=== PATIENT | female | born 1965 | race Caucasian/White ===

== ENCOUNTER 2017-11-07 11:15 | Emergency (ER) | payer MEDICAID, OTHER ==
[2017-11-07 12:01] LABS: ADD MAN DIFF? NO
[2017-11-07 12:11] LABS: BASOPHIL # 0.1 10^3/ul (0.0-0.1); BASOPHILS % 0.8 % (0.0-2.0); EOSINOPHILS # 0.2 10^3/ul (0.0-0.5); EOSINOPHILS % 2.2 % (0.0-7.0); HEMATOCRIT 39.2 % (37.0-47.0); HEMOGLOBIN 12.4 g/dl (12.0-16.0); LYMPHOCYTES # 2.7 10^3/ul (0.8-2.9); MEAN CORPUSCULAR HEMOGLOBIN 25.5 pg (29.0-33.0); MEAN CORPUSCULAR HGB CONC 31.6 g/dl (32.0-37.0); MEAN CORPUSCULAR VOLUME 80.5 fl (82.0-101.0); MEAN PLATELET VOLUME 11.5 fl (7.4-10.4); MONOCYTE # 0.6 10^3/ul (0.3-0.9); MONOCYTES % 6.4 % (0.0-11.0); NEUTROPHIL # 5.2 10^3/ul (1.6-7.5); NEUTROPHILS % 58.9 % (39.0-77.0); PLATELET COUNT 266 10^3/UL (140-415); RED BLOOD COUNT 4.87 10^6/ul (4.20-5.40); RED CELL DISTRIBUTION WIDTH 14.8 % (11.5-14.5)
[2017-11-07 12:11] LABS: WHITE BLOOD COUNT 8.8 10^3/ul (4.8-10.8)
[2017-11-07 12:22] LABS: ANION GAP 18 (8-16); BLOOD UREA NITROGEN 10 mg/dl (7-20); CALCIUM 8.8 mg/dl (8.4-10.2); CARBON DIOXIDE 25 mmol/L (21-31); CHLORIDE 109 mmol/L (97-110); CREATININE 0.49 mg/dl (0.44-1.00); GLUCOSE 113 mg/dl (70-220); POTASSIUM 3.9 mmol/L (3.5-5.1); SODIUM 148 mmol/L (135-144)
[2017-11-07 12:30] LABS: PARTIAL THROMBOPLASTIN TIME 28.7 Sec (25.0-35.0); PROTIME 13.3 Sec (11.9-14.9)
[2017-11-07 12:34] LABS: TROPONIN-I < 0.012 ng/ml (0.000-0.120)
[2017-11-07 12:48] LABS: B-TYPE NATRIURETIC PEPTIDE 57 PG/ML (0-125)
[2017-11-07] MEDS: IOHEXOL 100 ML (13:04)
[2017-11-07] MEDS: SOD CHLORIDE 0.9% 100 ML (13:04)
[2017-11-07] MEDS: KETOROLAC 30 MG INJ IV (15:22)
== END 2017-11-07 16:45 | disposition home or self-care (01) ==
LOC: E/R 11:15
DX: R09.1 Pleurisy (principal); R60.0 Localized edema; I10 Essential (primary) hypertension; Z79.82 Long term (current) use of aspirin
CPT/HCPCS: 36415; 71045; 71275; 80048; 83880; 84484; 85025; 85610; 85730; 93970; 96374; 99285-25

== ENCOUNTER 2017-12-04 14:06 | Inpatient (IN) | payer MEDICAID ==
[2017-12-04 17:32] LABS: ADD MAN DIFF? NO
[2017-12-04 17:35] LABS: BASOPHILS % 0.3 % (0.0-2.0); EOSINOPHILS % 0.1 % (0.0-7.0); HEMOGLOBIN 14.5 g/dl (12.0-16.0); LYMPHOCYTES # 1.1 10^3/ul (0.8-2.9); LYMPHOCYTES % 8.6 % (15.0-51.0); MEAN CORPUSCULAR HEMOGLOBIN 25.8 pg (29.0-33.0); MEAN CORPUSCULAR HGB CONC 32.2 g/dl (32.0-37.0); MEAN CORPUSCULAR VOLUME 79.9 fl (82.0-101.0); MEAN PLATELET VOLUME 10.2 fl (7.4-10.4); MONOCYTE # 0.4 10^3/ul (0.3-0.9); MONOCYTES % 3.2 % (0.0-11.0); NEUTROPHIL # 11.3 10^3/ul (1.6-7.5); NEUTROPHILS % 87.4 % (39.0-77.0); PLATELET COUNT 348 10^3/UL (140-415); RED BLOOD COUNT 5.63 10^6/ul (4.20-5.40); RED CELL DISTRIBUTION WIDTH 14.6 % (11.5-14.5)
[2017-12-04 17:35] LABS: WHITE BLOOD COUNT 12.9 10^3/ul (4.8-10.8)
[2017-12-04 17:48] LABS: ADD UMIC YES; UR ASCORBIC ACID 20 mg/dL (NEGATIVE); UR BACTERIA MANY /HPF (NONE SEEN); UR BILIRUBIN (Dip) NEGATIVE (NEGATIVE); UR BLOOD (Dip) NEGATIVE (NEGATIVE); UR BUDDING YEAST FEW /HPF (NONE SEEN); UR CLARITY CLOUDY (CLEAR); UR COLOR AMBER (YELLOW); UR GLUCOSE (Dip) NEGATIVE (NEGATIVE); UR KETONES (Dip) 2+ mg/dL (NEGATIVE); UR LEUKOCYTE ESTERASE (Dip) 3+ Leu/ul (NEGATIVE); UR MUCUS MODERATE /HPF (NONE SEEN); UR NITRITE (Dip) POSITIVE (NEGATIVE); UR RBC 10 /HPF (0-5); UR SPECIFIC GRAVITY (Dip) 1.028 (1.003-1.030); UR SQUAMOUS EPITHELIAL CELL MANY /HPF (FEW); UR TOTAL PROTEIN (Dip) 2+ mg/dl (NEGATIVE); UR UROBILINOGEN (Dip) NEGATIVE (NEGATIVE); UR WBC 59 /HPF (0-5)
[2017-12-04 17:54] LABS: ALANINE AMINOTRANSFERASE 49 IU/L (13-69); ALBUMIN 4.7 g/dl (3.3-4.9); ALBUMIN/GLOBULIN RATIO 1.27; ALKALINE PHOSPHATASE 140 IU/L (42-121); AMYLASE 63 U/L (11-123); ANION GAP 21 (8-16); ASPARTATE AMINO TRANSFERASE 34 IU/L (15-46); BILIRUBIN,INDIRECT 0.5 mg/dl (0-1.1); BILIRUBIN,TOTAL 0.5 mg/dl (0.2-1.3); BLOOD UREA NITROGEN 14 mg/dl (7-20); CALCIUM 9.2 mg/dl (8.4-10.2); CARBON DIOXIDE 26 mmol/L (21-31); CHLORIDE 98 mmol/L (97-110); GLUCOSE 143 mg/dl (70-220); LIPASE 42 U/L (23-300); POTASSIUM 3.9 mmol/L (3.5-5.1); SODIUM 141 mmol/L (135-144); TOTAL PROTEIN 8.4 g/dl (6.1-8.1)
[2017-12-04 17:59] LABS: INR 1.08; PROTIME 14.1 Sec (11.9-14.9); PT RATIO 1.1
[2017-12-04 18:00] LABS: PARTIAL THROMBOPLASTIN TIME 32.2 Sec (25.0-35.0)
[2017-12-04 18:06] LABS: TROPONIN-I < 0.012 ng/ml (0.000-0.120)
[2017-12-04] MEDS: ONDANSETRON 4 MG INJ IV ×3 (18:32→23:21)
[2017-12-04] MEDS: SOD CHLORIDE 0.9% 1,000 ML IV ×2 (18:33→22:08)
[2017-12-04] MEDS: HYDROmorphONE 1 MG/ML SYG IV ×3 (18:33→23:21)
[2017-12-04] MEDS: SOD CHLORIDE 0.9% 100 ML (19:06)
[2017-12-04] MEDS: IODIXANOL LOCM 100 ML BTL (19:06)
[2017-12-04] MEDS: CEFTRIAXONE 1 GM/50 ML (PMX) 50 ML IVPB (20:54)
[2017-12-04] MEDS ORDERED: ACETAMINOPHEN 325 MG TAB PO (21:00)
[2017-12-04] MEDS ORDERED: ONDANSETRON 4 MG INJ IV ×2 (21:00→22:00)
[2017-12-04 21:18] LABS: LACTIC ACID 1.2 mmol/L (0.5-2.0)
[2017-12-04] MEDS ORDERED: NACL 0.9% 3 ML SYG IV (22:00)
[2017-12-05] MEDS: SOD CHLORIDE 0.9% 1,000 ML IV ×3 (00:15→17:38)
[2017-12-05 01:25] LABS: LACTIC ACID 1.1 mmol/L (0.5-2.0)
[2017-12-05] MEDS ORDERED: ENALAPRILAT 1.25 MG INJ IV (03:00)
[2017-12-05] MEDS: morphine 2 MG INJ IV (03:49)
[2017-12-05 05:38] LABS: ADD MAN DIFF? NO
[2017-12-05 05:47] LABS: WHITE BLOOD COUNT 7.6 10^3/ul (4.8-10.8)
[2017-12-05 05:47] LABS: BASOPHILS % 0.4 % (0.0-2.0); EOSINOPHILS % 0.5 % (0.0-7.0); HEMATOCRIT 39.7 % (37.0-47.0); LYMPHOCYTES # 1.5 10^3/ul (0.8-2.9); LYMPHOCYTES % 19.5 % (15.0-51.0); MEAN CORPUSCULAR HEMOGLOBIN 26.2 pg (29.0-33.0); MEAN CORPUSCULAR HGB CONC 32.7 g/dl (32.0-37.0); MEAN PLATELET VOLUME 11.1 fl (7.4-10.4); MONOCYTE # 0.6 10^3/ul (0.3-0.9); MONOCYTES % 8.4 % (0.0-11.0); NEUTROPHIL # 5.4 10^3/ul (1.6-7.5); NEUTROPHILS % 71.1 % (39.0-77.0); PLATELET COUNT 328 10^3/UL (140-415); RED BLOOD COUNT 4.96 10^6/ul (4.20-5.40); RED CELL DISTRIBUTION WIDTH 15.1 % (11.5-14.5)
[2017-12-05 05:57] LABS: HEMOGLOBIN A1C 6.2 % (0-5.9)
[2017-12-05 06:09] LABS: ALANINE AMINOTRANSFERASE 38 IU/L (13-69); ALBUMIN 3.8 g/dl (3.3-4.9); ALBUMIN/GLOBULIN RATIO 1.18; ALKALINE PHOSPHATASE 117 IU/L (42-121); ANION GAP 16 (8-16); ASPARTATE AMINO TRANSFERASE 24 IU/L (15-46); BILIRUBIN,INDIRECT 0.6 mg/dl (0-1.1); BILIRUBIN,TOTAL 0.6 mg/dl (0.2-1.3); BLOOD UREA NITROGEN 13 mg/dl (7-20); CALCIUM 7.8 mg/dl (8.4-10.2); CARBON DIOXIDE 28 mmol/L (21-31); CHLORIDE 103 mmol/L (97-110); CHOL/HDL RATIO 2.9 RATIO; CHOLESTEROL 88 mg/dl (100-200); CREATININE 0.52 mg/dl (0.44-1.00); GLUCOSE 130 mg/dl (70-220); HDL CHOLESTEROL 30 mg/dl (37-92); LDL CHOLESTEROL,CALCULATED 42 mg/dl; POTASSIUM 3.6 mmol/L (3.5-5.1); SODIUM 143 mmol/L (135-144); TRIGLYCERIDES 79 mg/dl (0-149)
[2017-12-05] MEDS: PANTOPRAZOLE 40 MG INJ IV (06:09)
[2017-12-05] MEDS: ACETAMINOPHEN 1000MG/100ML IV 100 ML IVPB (14:03)
[2017-12-05] MEDS ORDERED: VANCOMYCIN IV PER PHARMACY XX (15:00)
[2017-12-05] MEDS: VANCOMYCIN 2 GM in SOD CHLORIDE 0.9% 500 ML IVPB (17:50)
[2017-12-05] MEDS ORDERED: CEFTRIAXONE 1 GM/50 ML (PMX) 50 ML IVPB (19:00)
[2017-12-05] MEDS: VANCOMYCIN 750 MG in SOD CHLORIDE 0.9% 150 ML IVPB (23:57)
[2017-12-06] MEDS: SOD CHLORIDE 0.9% 1,000 ML IV ×2 (02:48→12:38)
[2017-12-06] MEDS: VANCOMYCIN 1.5 GM in SOD CHLORIDE 0.9% 250 ML IVPB ×2 (04:29→17:32)
[2017-12-06 05:39] LABS: ADD MAN DIFF? NO
[2017-12-06 05:47] LABS: WHITE BLOOD COUNT 7.9 10^3/ul (4.8-10.8)
[2017-12-06 05:47] LABS: BASOPHILS % 0.5 % (0.0-2.0); EOSINOPHILS # 0.2 10^3/ul (0.0-0.5); EOSINOPHILS % 2.4 % (0.0-7.0); HEMOGLOBIN 11.5 g/dl (12.0-16.0); LYMPHOCYTES # 2.4 10^3/ul (0.8-2.9); LYMPHOCYTES % 30.9 % (15.0-51.0); MEAN CORPUSCULAR HEMOGLOBIN 25.8 pg (29.0-33.0); MEAN CORPUSCULAR HGB CONC 31.1 g/dl (32.0-37.0); MEAN CORPUSCULAR VOLUME 83.1 fl (82.0-101.0); MEAN PLATELET VOLUME 10.8 fl (7.4-10.4); MONOCYTE # 0.5 10^3/ul (0.3-0.9); MONOCYTES % 6.6 % (0.0-11.0); NEUTROPHIL # 4.7 10^3/ul (1.6-7.5); PLATELET COUNT 272 10^3/UL (140-415); RED BLOOD COUNT 4.45 10^6/ul (4.20-5.40); RED CELL DISTRIBUTION WIDTH 15.1 % (11.5-14.5)
[2017-12-06 06:44] LABS: ANION GAP 11 (8-16); BLOOD UREA NITROGEN 9 mg/dl (7-20); CALCIUM 7.4 mg/dl (8.4-10.2); CARBON DIOXIDE 26 mmol/L (21-31); CHLORIDE 110 mmol/L (97-110); CREATININE 0.56 mg/dl (0.44-1.00); GLUCOSE 91 mg/dl (70-220); MAGNESIUM 2.1 mg/dl (1.7-2.5); PHOSPHORUS 2.5 mg/dl (2.5-4.9); POTASSIUM 3.4 mmol/L (3.5-5.1); SODIUM 144 mmol/L (135-144)
[2017-12-06] MEDS ORDERED: morphine LIQ (10 MG/5 ML) CUP PO (18:30)
[2017-12-07 04:48] LABS: ANION GAP 11 (8-16); BLOOD UREA NITROGEN 4 mg/dl (7-20); CALCIUM 7.9 mg/dl (8.4-10.2); CARBON DIOXIDE 27 mmol/L (21-31); CHLORIDE 109 mmol/L (97-110); CREATININE 0.46 mg/dl (0.44-1.00); GLUCOSE 101 mg/dl (70-220); MAGNESIUM 2.1 mg/dl (1.7-2.5); PHOSPHORUS 2.9 mg/dl (2.5-4.9); POTASSIUM 3.8 mmol/L (3.5-5.1); SODIUM 143 mmol/L (135-144)
[2017-12-07 04:59] LABS: VANCOMYCIN,TROUGH 6.3 ug/ml (10.0-20.0)
[2017-12-07] MEDS: VANCOMYCIN 1.5 GM in SOD CHLORIDE 0.9% 250 ML IVPB ×2 (05:25→12:21)
[2017-12-07] MEDS ORDERED: CIPROFLOXACIN 400MG/D5W 200 ML IVPB (11:30)
[2017-12-07] MEDS: CIPROFLOXACIN 250 MG TAB PO (12:20)
== END 2017-12-07 14:20 | disposition home or self-care (01) | DRG 394 ==
LOC: E/R 14:06 → MS2 23:40
DX: K43.6 Other and unspecified ventral hernia with obstruction, without gangrene (principal); N39.0 Urinary tract infection, site not specified; Z68.43 Body mass index [BMI] 50.0-59.9, adult; I10 Essential (primary) hypertension; E66.01 Morbid (severe) obesity due to excess calories; Z86.711 Personal history of pulmonary embolism; Z90.49 Acquired absence of other specified parts of digestive tract
CPT/HCPCS: 71045; 74177; 80048; 80053; 80061; 80202; 81001; 82150; 83036; 83605; 83690; 83735; 84100; 84443; 84484; 85025; 85610; 85730; 87040; 87086; 93005; 96374; 96375; 96376; 99285-25

== ENCOUNTER 2018-03-04 19:52 | Emergency (ER) | payer MEDICAID ==
[2018-03-04 21:48] LABS: ADD MAN DIFF? NO
[2018-03-04] MEDS: morphine 2 MG INJ IV (21:56)
[2018-03-04] MEDS: ONDANSETRON 4 MG INJ IV (21:57)
[2018-03-04] MEDS: SOD CHLORIDE 0.9% 1,000 ML IV (21:57)
[2018-03-04 22:12] LABS: WHITE BLOOD COUNT 12.3 10^3/ul (4.8-10.8)
[2018-03-04 22:12] LABS: BASOPHIL # 0.1 10^3/ul (0.0-0.1); BASOPHILS % 0.4 % (0.0-2.0); EOSINOPHILS % 0.1 % (0.0-7.0); HEMATOCRIT 46.1 % (37.0-47.0); HEMOGLOBIN 15.3 g/dl (12.0-16.0); LYMPHOCYTES # 1.5 10^3/ul (0.8-2.9); MEAN CORPUSCULAR HEMOGLOBIN 26.6 pg (29.0-33.0); MEAN CORPUSCULAR HGB CONC 33.2 g/dl (32.0-37.0); MEAN CORPUSCULAR VOLUME 80.2 fl (82.0-101.0); MEAN PLATELET VOLUME 10.7 fl (7.4-10.4); MONOCYTE # 0.8 10^3/ul (0.3-0.9); MONOCYTES % 6.3 % (0.0-11.0); NEUTROPHILS % 80.9 % (39.0-77.0); PLATELET COUNT 410 10^3/UL (140-415); RED BLOOD COUNT 5.75 10^6/ul (4.20-5.40); RED CELL DISTRIBUTION WIDTH 15.5 % (11.5-14.5)
[2018-03-04 22:17] LABS: ALANINE AMINOTRANSFERASE 43 IU/L (13-69); ALBUMIN 4.3 g/dl (3.3-4.9); ALBUMIN/GLOBULIN RATIO 0.89; ALKALINE PHOSPHATASE 146 IU/L (42-121); ANION GAP 17 (8-16); ASPARTATE AMINO TRANSFERASE 35 IU/L (15-46); BILIRUBIN,INDIRECT 0.8 mg/dl (0-1.1); BILIRUBIN,TOTAL 0.8 mg/dl (0.2-1.3); BLOOD UREA NITROGEN 17 mg/dl (7-20); CALCIUM 9.6 mg/dl (8.4-10.2); CARBON DIOXIDE 25 mmol/L (21-31); CHLORIDE 103 mmol/L (97-110); CREATININE 0.74 mg/dl (0.44-1.00); GLUCOSE 161 mg/dl (70-220); LIPASE 27 U/L (23-300); POTASSIUM 3.8 mmol/L (3.5-5.1); SODIUM 141 mmol/L (135-144); TOTAL PROTEIN 9.1 g/dl (6.1-8.1)
[2018-03-04 22:18] LABS: ADD UMIC YES; UR ASCORBIC ACID 40 mg/dL (NEGATIVE); UR BACTERIA MANY /HPF (NONE SEEN); UR BILIRUBIN (Dip) 1+ mg/dL (NEGATIVE); UR BLOOD (Dip) NEGATIVE (NEGATIVE); UR CLARITY CLOUDY (CLEAR); UR COLOR AMBER (YELLOW); UR GLUCOSE (Dip) NEGATIVE (NEGATIVE); UR HYALINE CAST FEW /HPF (NONE SEEN); UR KETONES (Dip) 1+ mg/dL (NEGATIVE); UR LEUKOCYTE ESTERASE (Dip) 1+ Leu/ul (NEGATIVE); UR MUCUS MANY /HPF (NONE SEEN); UR NITRITE (Dip) POSITIVE (NEGATIVE); UR RBC 9 /HPF (0-5); UR SPECIFIC GRAVITY (Dip) 1.032 (1.003-1.030); UR SQUAMOUS EPITHELIAL CELL MODERATE /HPF (FEW); UR TOTAL PROTEIN (Dip) 3+ mg/dl (NEGATIVE); UR UROBILINOGEN (Dip) 2+ mg/dL (NEGATIVE); UR WBC 36 /HPF (0-5)
[2018-03-04 22:29] LABS: TROPONIN-I < 0.012 ng/ml (0.000-0.120)
[2018-03-04] MEDS: NA PHOSPHATE/BIPHOS 133 ML ENEMA PR (23:21)
[2018-03-04] MEDS: BISACODYL 10 MG SUPP PR (23:21)
== END 2018-03-05 01:16 | disposition home or self-care (01) ==
LOC: E/R 03-05 01:16
DX: K59.00 Constipation, unspecified (principal); N39.0 Urinary tract infection, site not specified; I10 Essential (primary) hypertension; Z79.82 Long term (current) use of aspirin
CPT/HCPCS: 36415; 76705; 80053; 81001; 83690; 84484; 85025; 87086; 93005; 96374; 96375; 99285-25